=== PATIENT | female | born 2000 | race Asian ===

== ENCOUNTER 2025-01-06 14:16 | Outpatient (REF) | payer BC, SELFPAY ==
[2025-01-06 17:40] LABS: MANUAL DIFF FLAG NO
[2025-01-06 17:52] LABS: Appearance Urine Clear; Glucose Urine UA Negative (Negative); PH 7.5 (5.0-9.0); Specific Gravity - Urine 1.015 (1.005-1.025); UMIC TRIGGER UACC YES
[2025-01-06 17:59] LABS: Hematocrit 36.3 % (37.0-47.0); Hemoglobin 11.5 g/dl (12.0-16.0); Imm Gran Abs Auto 0.03 X10*3/uL (0.00-0.03); Imm Gran Pct Auto 0.3 % (0.0-0.4); Lymphocytes Absolute Auto 3.1 X10*3/uL (1.2-4.9); Mean Corpuscular HGB Conc 31.7 g/dl (31.0-35.0); Mean Corpuscular Hemoglobin 25.2 pg (27.0-33.0); Mean Corpuscular Volume 79.4 fL (80.0-98.0); NRBC Abs Auto 0.000 X10*3/uL (0.0-0.012); NRBC Pct Auto 0.0 /100WBC (0.0-0.2); Platelet Count 230 X10*3/uL (160-400); Red Blood Count 4.57 X10*6/uL (4.20-5.50); White Blood Count 8.8 X10*3/uL (4.8-10.8)
[2025-01-06 18:03] LABS: UACC Culture Trigger YES
[2025-01-06 18:22] LABS: Alanine Aminotransferase 18 U/L (0-31); Albumin Level 4.5 g/dL (3.5-5.0); Alkaline Phosphatase 78 U/L (39-117); Anion Gap 11 (12-20); Aspartate Amino Transferase 36 U/L (5-31); Blood Urea Nitrogen 14 mg/dL (9-16); Calcium 9.5 mg/dL (8.4-10.2); Carbon Dioxide 24 mmol/L (22-29); Chloride 108 mmol/L (96-108); Cholesterol 126 mg/dL (<200); Estimated Glomerular Filt Rate > 60; HDL Cholesterol 50 mg/dL (>40); Magnesium 2.2 mg/dL (1.6-2.6); Potassium 4.4 mmol/L (3.3-5.1); Sodium 139 mmol/L (135-145); Total Protein 7.8 g/dL (6.5-8.0); Triglycerides 92 mg/dL (<150)
[2025-01-06 18:42] LABS: Folate 9.6 ng/mL (> or = 4.0); Vitamin B12 162 pg/mL (200-900)
[2025-01-07 08:57] LABS: HBS Num1 0.01 mIU/mL (0-7.99); HBsAGNum1 0.38 S/CO (0.00-0.99); HIV Num 1 0.05 S/CO (0.00-0.99); Hepatitis B Surface Antigen Negative (Negative); ~HepC Num1 0.07 S/CO (0.00-0.79); ~Hepatitis B Surface Antibody NONREACTIVE (Nonreactive); ~Hepatitis C Antibody Nonreactive (Nonreactive)
[2025-01-13 14:33] LABS: VITAMIN D (1,25 OH) D3 73 pg/mL; Vit D (1,25-Dihydroxy) Total 73 pg/mL (18-72); Vitamin D (1,25 OH) D2 <8 pg/mL
== END 2025-01-06 14:17 | disposition home or self-care (01) ==
LOC: HO.HKASLDS 14:16
PROVIDERS: PCP Student in an Organized Health Care Education/Training Program; Visit Provider Student in an Organized Health Care Education/Training Program
DX: Z76.89 Persons encountering health services in other specified circumstances (principal); Z01.89 Encounter for other specified special examinations; Z13.220 Encounter for screening for lipoid disorders; Z13.1 Encounter for screening for diabetes mellitus; Z11.4 Encounter for screening for human immunodeficiency virus [HIV]; Z13.31 Encounter for screening for depression; Z13.6 Encounter for screening for cardiovascular disorders; Z71.9 Counseling, unspecified; Z13.9 Encounter for screening, unspecified; L25.9 Unspecified contact dermatitis, unspecified cause; R51.9 Headache, unspecified
CPT/HCPCS: 36415; 80053; 80061; 81001; 82607; 82652; 82746; 83036; 83735; 84443; 85025; 86706; 86803; 87086; 87340; 87389; 96127

== ENCOUNTER 2025-01-06 14:16 | Outpatient (AMB) | payer BC, SELFPAY ==
--- NOTE | 2025-01-06 14:18 | A.OFFPC_ITS ---
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 Rash on left arm: - Rash present for one year on the left arm, no itching, no prior treatment. Headache: - Headaches for two weeks, no nausea or vomiting, possibly related to screen time. Health Maintenance - Cervical cancer screening recommended as the patient has never had a Pap smear. Review of Systems - Dermatological: Reports rash on left a rm, denies itching. - Neurological: Reports headaches for tw o weeks, denies nausea or vomiting. 10-point ROS reviewed and negative excep t as noted in HPI Past Medical History - No significant past medical history re ported. Social History - The patient uses a mobile device for s tudying, which may contribute to headaches. Physical Exam General: No apparent distress. Alert and oriented x 3. Head:Normocephalic, atraumatic Eyes: Pupils equal, round, and reactive to light. Extraocular movements intact Throat: 0ropharynx clear. Mucus membranes moist Neck: Supple. No swelling. No pain. No jugular vein distention. No bruit. Cardiovascular: Regular rate and rhythm. Normal S1 and S2. No abnormalities noted. murmurs, rubs, or gallops Lungs: Clear to auscultation bilaterally. Breath sounds equal bilaterally. No rales, ronchi, or wheezes. Abdomen: Non-tender. Non-distended. Bowel sounds auscultated. No abnormalities noted. hepatosplenomegaly. No mass/rebound/guarding Extremities: No clubbing, cyanosis, or edema.clubbing, cyanosis, and edema. 2+ pulses Neuro: Central nerves II-XII grossly intact. Motor/sensory intact. Reflexes 2+. Gait normal. Skin: Warm, dry, and intact. Rash noted on the back of the left arm from the elbow up to the shoulder. No itching reported. Discussion Notes I discussed with the patient the possibility of contact dermatitis as a cause for the rash and recommended a topical cream for treatment. We also discussed the importance of cervical cancer screening and recommended a Pap smear. For her headaches, I suggested reducing screen time and prescribed ibuprofen for symptomatic relief. Follow-up was advised in two weeks to assess the response to treatment. Plan 1. Rash On Left Arm - Prescribed topical cream for suspected contact dermatitis; follow-up in two weeks. 2. Headache - Recommended reducing screen time and p rescribed ibuprofen for relief. 3. Preventative Care: Cervical Cancer Sc merle Recommendation - Advised Pap smear for cervical cancer screening, as the patient has not had one before. Patient Instructions - Apply the prescribed cream to the rash on your left arm as directed. - Reduce screen time to help alleviate h eadaches. - Take ibuprofen as needed for headache relief. - Schedule a Pap smear for cervical canc er screening. - Follow up in two weeks to assess treat ment progress. [facility] Family History (Updated 01/06/25 @ 14:20 by Billy Aguila MA) Father No problems noted. Mother No problems noted. Social History (Updated 01/06/25 @ 14:21 by Billy Aguila MA) Housing: Apartment Alcohol intake: current Alcohol intake frequency: does not drink Patient Tobacco Use Status: Never used Tobacco service: No Current occupational status: unemployed Cognitive needs: No Hearing needs: No Vision needs: No Questionnaire PHQ-9 Over the last 2 weeks, how often have you been bothered by any of the following problems? 1. Little interest or pleasure in doing things: not at all 2. Feeling down, depressed, or hopeless: not at all 3. Trouble falling or staying asleep, or sleeping too much: not at all 4. Feeling tired or having little energy: not at all 5. Poor appetite or overeating: not at all 6. Feeling bad about yourself - or that you are a failure or have let yourself or your family down: not at all 7. Trouble concentrating on things, such as reading the newspaper or watching television: not at all 8. Moving or speaking so slowly that other people could have noticed. Or the opposite - being so fidgety or restless that you have been moving around a lot more than usual: not at all 9. Thoughts that you would be better off or of hurting yourself in some way: not at all Total score: 0 Depression Screening Done: Yes Source: Developed by Drs. Elmo Brown, Lissette Engel, Fam Alvarado and colleagues, with an educational sanna from [employer]. Thrive Questionnaire Date Thrive assessed: 01/06/25 I am a: Patient What is your living situation today?: I have a steady place to live Within the past 12 months, did the food you bought not last and you didn't have the money to get more?: Never true Within the past 12 months, did you worry whether your food would run out before you got money to buy more?: Never true Do you have trouble paying for medicines?: No Do you have trouble getting transportation to medical appointments?: No Do you have trouble paying your heating and electricity bill?: No Do you have trouble taking care of your child, family member or friend?: No Are you currently unemployed and looking for a job?: Yes Are you interested in more education?: Yes Please select the resources that you would like help with: None Currently or been in a relationship where the following occur: No concerns reported THRIVE Score: 0 AUDIT C Alcohol Use Questionnaire (AUDIT-C) 1. How often do you have a drink containing alcohol?: Never 3. How often do you have six or more drinks on one occasion?: Never Total Score: 0 CECILIA-7 AMB Questionnaire CECILIA-7 Date CECILIA - 7 assessed: 01/06/25 Feeling nervous, anxious, or on edge: 0 = Not at all Not being able to stop or control worryin = Not at all Worrying too much about different things: 0 = Not at all Trouble relaxin = Not at all Being so restless that it is hard to sit still: 0 = Not at all Becoming easily annoyed or irritable: 0 = Not at all Feeling afraid as if something awful might happen: 0 = Not at all Total CECILIA-7 score (0-4 normal; 5-9 mild; 10-14 moderate; 15-21 severe): 0 Source: Developed by Drs. Elmo Brown, Lissette Engel, Fam Alvarado and colleagues, with an educational sanna from [employer]. Physical exam (Primary Care) Vital Signs: Last Vital Signs Temp 99.1 F 01/06/25 14:36 Pulse 83 01/06/25 14:36 Resp 16 01/06/25 14:36 BP 90/72 01/06/25 14:36 Pulse Ox 98 01/06/25 14:36 Oxygen Delivery Method Room Air 01/06/25 14:36 BMI result Body Mass Index 23.9 Tobacco/Smoking Status: Tobacco use Status Tobacco use date assessed 01/06/25 01/06/25 14:22 Patient Tobacco Use Status Never used Tobacco 01/06/25 14:22 PHQ-9: PHQ-9 Score PHQ-9: Total score 0 01/06/25 14:22 Thrive Assessment: Date of Thrive Assessment Date Thrive assessed 01/06/25 01/06/25 14:22 Currently or been in a relationship where the following occur: No concerns reported Coding Level of Care Code New Pt Level 3 (68531) Diagnoses Establishing care with new doctor, encounter for Z76 Routine lab draw Z01. Screening for lipoid disorders Z13.220 Screening for diabetes mellitus Z13.1 Screening for depression Z13.31 Screening for HIV (human immunodeficiency virus) Z11.4 Hypertension screen Z13.6 Counseling, unspecified Z71.9 Contact dermatitis and eczema L25.9 Headache R51.9 Assessment & Plan Assessment & Plan (1) Establishing care with new doctor, encounter for: Code(s): Z76.89 - Persons encountering health services in other specified circumstances (2) Routine lab draw: Code(s): Z01.89 - Encounter for other specified special examinations (3) Screening for lipoid disorders: Code(s): Z13.220 - Encounter for screening for lipoid disorders (4) Screening for diabetes mellitus: Code(s): Z13.1 - Encounter for screening for diabetes mellitus (5) Screening for depression: Code(s): Z13.31 - Encounter for screening for depression (6) Screening for HIV (human immunodeficiency virus): Code(s): Z11.4 - Encounter for screening for human immunodeficiency virus [HIV] (7) Hypertension screen: Code(s): Z13.6 - Encounter for screening for cardiovascular disorders (8) Counseling, unspecified: Code(s): Z71.9 - Counseling, unspecified (9) Contact dermatitis and eczema: Code(s): L25.9 - Unspecified contact dermatitis, unspecified cause (10) Headache: Code(s): R51.9 - Headache, unspecified Plan Orders: Orders Complete Blood Count Auto Diff Today Z13.9 - Encounter for screening, unspecified, Z76.89 - Persons encountering health services in other specified circumstances Comprehensive Met. Panel Today Z13.9 - Encounter for screening, unspecified, Z76.89 - Persons encountering health services in other specified circumstances Hepatitis B Surface Antigen Today Z13.9 - Encounter for screening, unspecified, Z76.89 - Persons encountering health services in other specified circumstances HIV Ab/Ag Today Z13.9 - Encounter for screening, unspecified, Z76.89 - Persons encountering health services in other specified circumstances Lipid Panel Today Z13.9 - Encounter for screening, unspecified, Z76.89 - Persons encountering health services in other specified circumstances Magnesium Today Z13.9 - Encounter for screening, unspecified, Z76.89 - Persons encountering health services in other specified circumstances UA CC w/rflx Micro + Cult Today Z13.9 - Encounter for screening, unspecified, Z76.89 - Persons encountering health services in other specified circumstances Hemoglobin A1c Today Z13.9 - Encounter for screening, unspecified, Z76.89 - Persons encountering health services in other specified circumstances Hepatitis B Surface Antibody Today Z13.9 - Encounter for screening, unspecified, Z76.89 - Persons encountering health services in other specified circumstances Hepatitis C Antibody Today Z13.9 - Encounter for screening, unspecified, Z76.89 - Persons encountering health services in other specified circumstances TSH reflex Free T4 Today Z13.9 - Encounter for screening, unspecified, Z76.89 - Persons encountering health services in other specified circumstances Vitamin D 1,25 dihydroxy Today Z13.9 - Encounter for screening, unspecified, Z76.89 - Persons encountering health services in other specified circumstances Vitamin B12 and Folate Today Z13.9 - Encounter for screening, unspecified, Z76.89 - Persons encountering health services in other specified circumstances Medications: New ibuprofen 600 mg PO Q8H PRN 30 tabs 0RF pain triamcinolone acetonide 0.1% 1 appl topical DAILY 80 grams 0RF
[2025-01-06 14:36] VITALS: BP 90/72; PULSE 83; RESP 16; TEMP 37.3; O2SAT 98; BMI 23.9
== END 2025-01-06 15:34 | disposition home or self-care (01) ==
LOC: HO.HMCFMS 14:16
PROVIDERS: PCP Student in an Organized Health Care Education/Training Program; Visit Provider Student in an Organized Health Care Education/Training Program
DX: L25.9 Unspecified contact dermatitis, unspecified cause (principal); R51.9 Headache, unspecified

== ENCOUNTER 2025-01-17 14:08 | Outpatient (AMB) | payer BC, SELFPAY ==
--- NOTE | 2025-01-17 14:17 | A.OFFPC_ITS ---
Vital Signs 01/17/25 14:18 Height 5 ft 1.81 in Weight 129 lb 2 oz BMI 23.8 BP 109/66 Blood Pressure Location Rt brachial Position Sitting Respiration 16 Pulse 75 Pulse Source Pulse Oximeter Temp 97.4 F Temp Source Oral Pulse Oximetry (%) 98 Oxygen Delivery Method Room Air Intake Visit Reasons: follow up labs Intake Note: she have like bumps in her top arms and under borrero. Bending Roll Hand Required: No Accompanied by: Self / Same As Patient Allergies No Known Allergies Allergy (Verified 01/17/25 14:19) Tobacco use date assessed: 01/06/25 Dental Screening Dental Screen Date: 01/06/25 Did you have a dental visit in the last 12 months?: No Did you have a dental problem in the last 6 months where you did not have access to dental care?: No Was dental information given to patient?: No HPI HPI Comments History of Present Illness Details History of Present Illness The patient is a 24-year-old female presenting for follow-up on labs Iron deficiency anemia: - The patient has low hemoglobin and julissa rocytic anemia, indicative of iron deficiency. - She reports symptoms of fatigue, hair loss, and occasional dizziness upon standing. - There is no history of heavy menstrual bleeding or family history of fibroids. - A small fibroid was noted during pregn marcell, which was expected to resolve post-delivery. Vitamin B12 deficiency: - The patient has a very low vitamin B12 level, requiring supplementation. - She denies any difficulty walking or t ingling sensations. Elevated liver enzymes: - Liver enzymes were noted to be slightl y elevated, with a plan to recheck in three months. Dermatitis At the trialing triamcinolone she has relief strict the patient to continue use as needed Review of Systems - General: Reports fatigue and hair loss . Denies fever or weight loss. - Cardiovascular: Reports occasional diz ziness upon standing. Denies palpitations or chest pain. - Neurological: Denies tingling or diffi culty walking. 10-point ROS reviewed and negative excep t as noted in HPI Past Medical History - History of uterine fibroid noted durin g , expected to resolve post- delivery. Health Maintenance - Plan to recheck liver enzymes in three months. Physical Exam General: Well-appearing, in no acute distress, but appears a little nervous. Vital signs: Within normal limits. HEENT: Normocephalic, atraumatic. PERRLA, EOMI. Conjunctiva clear, sclera anicteric. Oropharynx clear, mucous membranes moist. TMs intact bilaterally. Neck: Supple, no lymphadenopathy, no thyromegaly, no JVD or carotid bruits. Cardiovascular: RRR, normal S1/S2, no murmurs, rubs, or gallops. Peripheral pulses 2+ and symmetric. No edema. Respiratory: Lungs clear to auscultation bilaterally, no wheezes, rales, or rho nchi. Normal effort. Abdomen: Soft, non-tender, non-distended. Normoactive bowel sounds. No hepatosplenomegaly, no masses. MSK: Full range of motion, no joint swelling or deformity. Normal gait. Skin: Warm, dry, intact. No rashes, lesions, or pallor. Neuro: Alert and oriented x3. Cranial nerves II-XII intact. Strength 5/5 throughout. Sensation intact. Reflexes 2+ symmetric. Normal coordination and gait. Psych: Appropriate mood and affect. Normal judgment and insight. Plan 1. Iron Deficiency Anemia - Prescribed iron supplementation and vi tamin C to enhance absorption. - Advised to increase dietary fiber and fluid intake to prevent constipation. - Informed that stool may appear darker due to iron supplementation. 2. Vitamin B12 Deficiency - Recommended sublingual vitamin B12 sup plementation due to low levels. - Plan to monitor levels and consider in jections if necessary. 3. Elevated Liver Enzymes - Plan to re-evaluate liver enzymes in t hree months. Discussion Notes I discussed with the patient the importance of addressing her iron and vitamin B12 deficiencies. We talked about the benefits of iron and vitamin C supplementation to improve absorption and the potential side effects, such as constipation and dark stools. I also explained the need for sublingual vitamin B12 supplementation and the possibility of injections if levels do not improve. We agreed to recheck her liver enzymes in three months to monitor any changes. Patient was informed and verbally consented to the use of an ambient scribe for clinic note documentation during this visit. Patient Instructions - Take iron and vitamin C supplements da felicity to improve iron absorption. - Increase dietary fiber and fluid intak e to prevent constipation. - Be aware that stool may appear darker due to iron supplementation. - Take sublingual vitamin B12 daily and follow up if symptoms persist. - Return for follow-up in three months t o recheck liver enzymes. PFSH Family History Father No problems noted. Mother No problems noted. Social History Housing: Apartment Alcohol intake: current Alcohol intake frequency: does not drink Patient Tobacco Use Status: Never used Tobacco service: No Current occupational status: unemployed Cognitive needs: No Hearing needs: No Vision needs: No Questionnaire PHQ-9 Over the last 2 weeks, how often have you been bothered by any of the following problems? 1. Little interest or pleasure in doing things: not at all 2. Feeling down, depressed, or hopeless: not at all 3. Trouble falling or staying asleep, or sleeping too much: not at all 4. Feeling tired or having little energy: not at all 5. Poor appetite or overeating: not at all 6. Feeling bad about yourself - or that you are a failure or have let yourself or your family down: not at all 7. Trouble concentrating on things, such as reading the newspaper or watching television: not at all 8. Moving or speaking so slowly that other people could have noticed. Or the opposite - being so fidgety or restless that you have been moving around a lot more than usual: not at all 9. Thoughts that you would be better off or of hurting yourself in some way: not at all Total score: 0 Source: Developed by Drs. Elmo Brown, Lissette Engel, Fam Alvarado and colleagues, with an educational sanna from [employer]. Thrive Questionnaire Date Thrive assessed: 01/06/25 I am a: Patient What is your living situation today?: I have a steady place to live Within the past 12 months, did the food you bought not last and you didn't have the money to get more?: Never true Within the past 12 months, did you worry whether your food would run out before you got money to buy more?: Never true Do you have trouble paying for medicines?: No Do you have trouble getting transportation to medical appointments?: No Do you have trouble paying your heating and electricity bill?: No Do you have trouble taking care of your child, family member or friend?: No Do you have trouble with day-to-day activities such as bathing, preparing meals, shopping, managing finances, etc.?: I choose not to answer this question Are you currently unemployed and looking for a job?: Yes Are you interested in more education?: Yes Please select the resources that you would like help with: None Currently or been in a relationship where the following occur: No concerns reported THRIVE Score: 0 AUDIT C Alcohol Use Questionnaire (AUDIT-C) 1. How often do you have a drink containing alcohol?: Never 3. How often do you have six or more drinks on one occasion?: Never Total Score: 0 CECILIA-7 AMB Questionnaire CECILIA-7 Date CECILIA - 7 assessed: 01/06/25 Feeling nervous, anxious, or on edge: 0 = Not at all Not being able to stop or control worryin = Not at all Worrying too much about different things: 0 = Not at all Trouble relaxin = Not at all Being so restless that it is hard to sit still: 0 = Not at all Becoming easily annoyed or irritable: 0 = Not at all Feeling afraid as if something awful might happen: 0 = Not at all Total CECILIA-7 score (0-4 normal; 5-9 mild; 10-14 moderate; 15-21 severe): 0 Source: Developed by Drs. Emlo Brown, Lissette Engel, Fam Alvarado and colleagues, with an educational sanna from [employer]. Physical exam (Primary Care) Vital Signs: Last Vital Signs Temp 97.4 F 01/17/25 14:18 Pulse 75 01/17/25 14:18 Resp 16 01/17/25 14:18 BP 109/66 01/17/25 14:18 Pulse Ox 98 01/17/25 14:18 Oxygen Delivery Method Room Air 01/17/25 14:18 BMI result Body Mass Index 23.8 Tobacco/Smoking Status: Tobacco use Status Tobacco use date assessed 01/06/25 01/17/25 14:23 Patient Tobacco Use Status Never used Tobacco 01/17/25 14:23 PHQ-9: PHQ-9 Score PHQ-9: Total score 0 01/17/25 14:34 Thrive Assessment: Date of Thrive Assessment Date Thrive assessed 01/06/25 01/17/25 14:23 Currently or been in a relationship where the following occur: No concerns reported Coding Level of Care Code Est Pt Level 3 (01384) Diagnoses Encounter to discuss test results Z71.2 Vitamin B12 deficiency E53.8 Low hemoglobin D64.9 Low mean corpuscular volume (MCV) R71.8 Iron deficiency anemia D50.9 Elevated liver enzymes R74.8 Assessment & Plan Assessment & Plan (1) Encounter to discuss test results: Code(s): Z71.2 - Person consulting for explanation of examination or test findings (2) Vitamin B12 deficiency: Code(s): E53.8 - Deficiency of other specified B group vitamins (3) Low hemoglobin: Code(s): D64.9 - Anemia, unspecified (4) Low mean corpuscular volume (MCV): Code(s): R71.8 - Other abnormality of red blood cells (5) Iron deficiency anemia: Code(s): D50.9 - Iron deficiency anemia, unspecified (6) Elevated liver enzymes: Code(s): R74.8 - Abnormal levels of other serum enzymes Plan Medications: New ascorbic acid (vitamin C) 500 mg PO DAILY 90 tabs 0RF mecobalamin (vitamin B12) place tablet under tongue and allow to dissolve for at least30 secs before swallowing 1,000 mcg sublingual BEDTIME 90 tabs 0RF ferrous sulfate 325 mg PO DAILY 90 tabs 0RF
[2025-01-17 14:18] VITALS: BP 109/66; PULSE 75; RESP 16; TEMP 36.3; O2SAT 98; BMI 23.8
== END 2025-01-17 15:12 | disposition home or self-care (01) ==
LOC: HO.HMCFMS 14:09
PROVIDERS: PCP Student in an Organized Health Care Education/Training Program; Visit Provider Student in an Organized Health Care Education/Training Program
DX: E53.8 Deficiency of other specified B group vitamins (principal); D64.9 Anemia, unspecified; R71.8 Other abnormality of red blood cells; D50.9 Iron deficiency anemia, unspecified; R74.8 Abnormal levels of other serum enzymes